=== PATIENT | male | born 1965 | race African-American/Black ===

== ENCOUNTER 2018-08-12 09:20 | Day surgery (SDC) | payer MEDICARE, MEDICAID ==
[2018-08-11 09:57] VITALS: BMI 26.4
--- NOTE | 2018-08-12 12:23 | OP ---
DATE OF PROCEDURE: 08/12/2018 SURGEON: Ej Flowers M.D. SURVEYOR HELPER SURGEON: None. PROCEDURE: Esophagogastroduodenoscopy with biopsies. INDICATION: Intermittent nocturnal emesis. MEDICATIONS: See anesthesia record. FINDINGS: After discussion of the risks, benefits and alternatives of the procedure, informed consen t was obtained and witnessed. Pre-endoscopic cardiopulmonary examination was satisfactory. Timeout was performed before sedation was achieved. Sedation was achieved with anesthesia assistance in the endoscopy unit. A Pentax adult upper endoscope was placed into the oropharynx and passed through the cricopharyngeus under direct visualization. The esophageal mucosa appeared normal throughout with a normal-appearing Z-line. The endoscope was advanced into the stomach. Forward and retroflexed view s of the entire gastric mucosa were obtained. In the gastric fundus and particularly the gastric bod y, there is diffuse erythema with patchy areas of submucosal hemorrhage and mucosal edema. There wer e no erosions or ulcerations noted. I obtained biopsies from the gastric antrum and body to rule out H. pylori infection. The endoscope was passed through the pylorus and into the first and second por tions of the duodenum which appeared normal. The upper endoscope was completely withdrawn and the pa tient allowed to recover. The patient tolerated the procedure well. There were no immediate post-pr ocedure complications. IMPRESSION: 1. Moderate nonerosive gastritis in the gastric body and fundus, biopsies obtained to rule out Helic obacter pylori. 2. Otherwise, normal esophagogastroduodenoscopy. RECOMMENDATIONS: 1. Follow up pathology on the gastric biopsies. 2. If H. pylori is present, treat with triple therapy and confirm eradication. 3. If H. pylori is not present, would give daily oral proton pump inhibitor for 1-2 months.
[2018-08-12] MEDS ORDERED: Lidocaine 1% PF 5 ML VIAL ONE (16:25)
[2018-08-12] MEDS ORDERED: PROPOFOL 200 MG/20 ML VIAL ONE (16:25)
== END 2018-08-12 13:03 | disposition home or self-care (01) ==
LOC: SDC 09:20
PROVIDERS: ATTEND Internal Medicine
PROC: 0DB68ZX Excision of Stomach, Via Natural or Artificial Opening Endoscopic, Diagnostic (ICD-10-PCS; principal; 2018-08-12)
DX: K29.50 Unspecified chronic gastritis without bleeding (principal); B96.81 Helicobacter pylori [H. pylori] as the cause of diseases classified elsewhere; F72 Severe intellectual disabilities; K59.09 Other constipation; F42.9 Obsessive-compulsive disorder, unspecified; E55.9 Vitamin D deficiency, unspecified; Z79.899 Other long term (current) drug therapy; Z98.890 Other specified postprocedural states
CPT/HCPCS: 88305; 88312; J2001; J2704

== ENCOUNTER 2020-06-06 06:16 | Outpatient (CLI) | payer MEDICARE, MEDICAID, OTHER ==
[2020-06-06 17:58] LABS: SARS-CoV-2 MS2 Positive; SARS-CoV-2 N Gene Negative; SARS-CoV-2 S Gene Negative; SARS-CoV-2 by NAA Not Detected (NotDetected); SARS-CoV-2 orf1ab Negative
== END 2020-06-06 06:17 | disposition home or self-care (01) ==
LOC: LABBT 06:16
PROVIDERS: ATTEND Internal Medicine
DX: R19.5 Other fecal abnormalities (principal); Z86.010 Personal history of colon polyps; Z20.828 Contact with and (suspected) exposure to other viral communicable diseases
CPT/HCPCS: 87635; U0003

== ENCOUNTER 2020-06-09 05:49 | Day surgery (SDC) | payer MEDICARE, MEDICAID ==
[2020-06-07 10:48] VITALS: BMI 25.0
[2020-06-09] MEDS ORDERED: Lidocaine 1% PF 5 ML VIAL ONE (09:25)
[2020-06-09] MEDS ORDERED: PROPOFOL 200 MG/20 ML VIAL ONE (09:25)
--- NOTE | 2020-06-09 12:57 | OP ---
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 PROCEDURE PERFORMED: Colonoscopy with biopsies. INDICATIONS: 1. Personal history of colon polyps, with tubular adenoma removed on last colonoscopy in 2013. 2. Positive FIT. MEDICATIONS: See Anesthesia record. FINDINGS: After discussion of the risks, benefits, and alternatives of the procedure, informed consent was obtained and verified. Pre-endoscopic cardiopulmonary examination was satisfactory. Time-out was performed before sedation was achieved. Sedation was achieved with Anesthesia assistance in the endoscopy unit. Digital rectal exam was performed, which was unremarkable. A Pentax adult colonoscope was inserted into the anus and passed forward to the cecum in the usual fashion. The cecal base was identified by the appendiceal orifice as well as the ileocecal valve. The terminal ileum was not intubated. The colonoscope was slowly withdrawn in a gradual and circumferential manner with careful examination of the entire colonic mucosa. The quality of the prep was good. There was no evidence of any blood within the colon. There was no evidence of any polyps or mass lesions. In the rectum at about 10 cm from the anal verge, there was a single shallow clean based, benign-appearing ulcer measuring about 1.5 cm in diameter. This has the appearance of a stercoral ulcer. Multiple biopsies were obtained from the ulcer edge for histology. Retroflexion in the rectum demonstrated no additional abnormalities. The colonoscope was completely withdrawn and the patient allowed to recover. The patient tolerated the procedure well. There were no immediate postprocedure complications. IMPRESSION: 1. Single shallow clean based, benign-appearing 1.5 cm ulcer in the rectum at 10 cm, having the appearance of a likely stercoral ulcer. Biopsied for histology. 2. Otherwise, normal colonoscopy to the cecum. RECOMMENDATIONS: 1. Follow up pathology on the rectal ulcer biopsies. 2. Continue with stool softener. 3. Would consider adding MiraLAX 17 g daily. 4. Repeat colonoscopy in 5 years for surveillance purposes. 5. The patient can follow up in the [facility] as needed. Job ID: [id number]
== END 2020-06-09 08:55 | disposition home or self-care (01) ==
LOC: SDC 05:49
PROVIDERS: ATTEND Internal Medicine
PROC: 0DBP8ZX Excision of Rectum, Via Natural or Artificial Opening Endoscopic, Diagnostic (ICD-10-PCS; principal; 2020-06-09)
DX: K62.6 Ulcer of anus and rectum (principal); K62.89 Other specified diseases of anus and rectum; R19.5 Other fecal abnormalities; G47.33 Obstructive sleep apnea (adult) (pediatric); E55.9 Vitamin D deficiency, unspecified; M41.9 Scoliosis, unspecified; F72 Severe intellectual disabilities; F42.9 Obsessive-compulsive disorder, unspecified; B35.3 Tinea pedis; B35.1 Tinea unguium; Z86.010 Personal history of colon polyps; Z79.899 Other long term (current) drug therapy
CPT/HCPCS: 88305; J2704